=== PATIENT | female | born 1945 | race Two or more races ===

== ENCOUNTER → 2016-09-15 | Day surgery (SDC) | payer OTHER ==
[~2016-09-15] MED LIST: ACETAMINOPHEN 500 MG TAB PO ONE; BACITRACIN 50,000 UNITS/10 ML SYR IRR ONE; BUPIVACAINE 0.25% 30 ML SDV ONE; BUPIVACAINE/EPI 0.25% 30 ML SDV ONE; BUPIVACAINE/EPI 0.5% 30 ML SDV ONE; CALCIUM CHLORIDE 1 GM/10 ML INJ ONE; DEXAMETHASONE 4 MG/ML VIAL ONE; LIDOCAINE 1% 5 ML SDV ONE; LIDOCAINE 2% JELLY 5 ML TUBE ONE; MIDAZOLAM 2 MG/2 ML VIAL ONE; ONDANSETRON 4 MG/2 ML VIAL ONE; POLYMYXIN B SULFATE 500,000 UNIT/10 ML SYR IRR ONE; PROPOFOL/EMULSION 500 MG/50 ML BOTTLE IV ONE; THROMBIN (BOVINE) 5,000 UNIT VIAL TP ONE; ceFAZolin 2 GM/DEXTROSE 100 ML IV ONE; fentaNYL 100 MCG/2 ML INJ ONE
--- NOTE | 2016-09-15 09:44 | GOP ---
[f rep st] OPERATIVE REPORT DATE OF OPERATION: 09/15/2016 SURGEON: Mary Ybarra MD STEM ROLLER: Sheeba Pisano, certified SA whose presence was medically necessary. ANESTHESIA: By LMA plus scalene nerve block per surgeon's request. PREOPERATIVE DIAGNOSIS: Right shoulder impingement syndrome with labral tear. POSTOPERATIVE DIAGNOSIS: Right shoulder impingement syndrome with labral tear, rotator cuff tear. PROCEDURE PERFORMED: Right shoulder arthroscopy with rotator cuff repair x1, subacromial decompress ion, distal clavicle excision, debridement of labrum, rotator cuff, and subacromial bursa. FINDINGS: INDICATIONS: This is a 71-year-old female with a several-month history of right shoulder pain worse curt with use and with time despite conservative measures. MRI exam reveals significant anterior ac romial curve with a labral tear and a very thin supraspinatus. She wishes to have surgery in order to resolve the problem. DESCRIPTION OF PROCEDURE: Patient was brought to the operating room after the right side had been i dentified as the correct side by the patient, nurse, and physician. Once in the operating room, she was given a scalene nerve block on the right side, then placed under anesthesia using an LMA. Once asleep, she was placed in a beach-chair position with the right upper extremity sterilely prepped a nd draped in the usual fashion using GSI solution. Once prepped and draped, incision was made off t he posterolateral corner of the acromion with the camera introduced without difficulty. Inspection of the joint revealed tearing of the anterosuperior portion of the labrum along with an abundant jaguar unt of fraying of the rotator cuff. Therefore, using the in-to-out technique, an anterior portal wa s made superolateral to the coracoid process with a 6 x 75 mm threaded cannula placed through the an terior portal. A 3.5 mm smooth shaver was then used to debride both the tears of the anterior and s uperior portion of the labrum. Attention was then turned to the rotator cuff. Debridement of the m ultiple loose fragments of the rotator cuff revealed a hole that appeared to go into the subacromial space. Once completed, all instruments were removed from the shoulder joint using the same portal sites that were placed in the subacromial space. A third incision was made 3 cm lateral to the acro mial process in line with the posterior cortex of the clavicle. The camera was switched to the late ral portal, and alternating using arthroscopic Bovie tip and shaver were used to remove the abundant amount of bursal tissue within the subacromial space and the soft tissue on the undersurface of the acromion. She was noted to have a very large anterior acromial curve and, therefore, an acromioniz er bur was brought through the posterior portal and used to remove that curve until achieving a flat ceiling. Attention was then turned to the distal clavicle which was noted to have a short sharp sp ur, and it was, therefore, removed using a combination of shaver and bur. Once completed, the camer a was switched back to the posterior portal. She was noted to have a 2 x 1 cm rotator cuff tear at the anterior portion of the greater tuberosity. The bone was eburnated where the rotator cuff had p ulled off the bone. The edges of the rotator cuff were debrided until achieving more solid edges. #2 FiberWire was woven into the anterior and posterior portions of the rotator cuff. The suture was placed onto a [employer] anchor which was driven into the bone, noted to have good fixation. Sutures were cut short. 30 cc of Marcaine was infused into the subacromial space with the 3 portal sites cl osed using 3-0 nylon suture. Plasma gel was placed within the subacromial space. The wounds were t hen dressed with Xeroform, 4 x 4, and Tegaderm. She was completely undraped in the operating room, had an immobilizer placed on the right upper extremity. She was then woken up, extubated, transferr ed onto a stretcher, and sent to recovery room in good condition. /[id number]/MODL
== END | disposition home or self-care (01) ==
LOC: FSGY 05:50
PROVIDERS: ATTEND Orthopaedic Surgery
PROC: 0RBJ4ZZ Excision of Right Shoulder Joint, Percutaneous Endoscopic Approach (ICD-10-PCS; principal; 2016-09-15 07:15)
PROC: 0PB94ZZ Excision of Right Clavicle, Percutaneous Endoscopic Approach (ICD-10-PCS; principal; 2016-09-15 07:15)
PROC: 0RQJ4ZZ Repair Right Shoulder Joint, Percutaneous Endoscopic Approach (ICD-10-PCS; principal; 2016-09-15 07:15)
PROC: 0LQ14ZZ Repair Right Shoulder Tendon, Percutaneous Endoscopic Approach (ICD-10-PCS; principal; 2016-09-15 07:15)
DX: M75.41 Impingement syndrome of right shoulder (principal); M75.101 Unspecified rotator cuff tear or rupture of right shoulder, not specified as traumatic; S43.431A Superior glenoid labrum lesion of right shoulder, initial encounter; E11.9 Type 2 diabetes mellitus without complications; E78.00 Pure hypercholesterolemia, unspecified
CPT/HCPCS: C1713; J0171; J0690; J1100; J2250; J2405; J2704; J3010

== ENCOUNTER 2018-06-14 10:20 | Inpatient (IN) | payer OTHER ==
[2018-06-14] MEDS ORDERED: BUPIVACAINE/EPI 0.5% 30 ML SDV ONE (10:49)
[2018-06-14] MEDS ORDERED: BACITRACIN 50,000 UNITS/10 ML SYR IRR ONE (10:50)
[2018-06-14] MEDS ORDERED: POLYMYXIN B SULFATE 500,000 UNIT/10 ML SYR IRR ONE (10:50)
--- NOTE | 2018-06-14 11:03 | PDANEPAE ---
ANE Past Medical History - Cardiovascular History Hx Hypertension: No Hx Arrhythmias: No Hx Chest Pain: No Hx Coronary Artery / Peripheral Vascular Disease: No Hx CHF / Valvular Disease: No Hx Palpitations: No Cardiovascular History Comment: Intermittent LBBB after 2017 shoulder. - Pulmonary History Hx COPD: No Hx Asthma/Reactive Airway Disease: No Hx Recent Upper Respiratory Infection: No Hx Oxygen in Use at Home: No Hx Sleep Apnea: No Sleep Apnea Screening Result - Last Documented: Negative Pulmonary History Comment: bronchitis - Neurologic History Hx Cerebrovascular Accident: No Hx Seizures: No Hx Dementia: No - Endocrine History Hx Diabetes: Yes Obesity: yes, mild Endocrine History Comment: NON-INSULIN DEPENDENT DIABETES. type 2 - Renal History Hx Renal Disorders: No - Liver History Hx Hepatic Disorders: No - Neurological & Psychiatric Hx Hx Neurological and Psychiatric Disorders: No - Cancer History Hx Cancer: No - Congenital Disorder History Hx Congenital Disorders: No - GI History Hx Gastrointestinal Disorders: Yes Gastrointestinal History Comment: GERD - Other Health History Other Health History: ROTATOR CUFF SYNDROME, DEPUYTREN'S DISEASE OF PALM, OSTEOARTHRITIS, BURSITIS OF HIP - Chronic Pain History Chronic Pain: No - Surgical History Prior Surgeries: PARTIAL HYSTERECTOMY. RIGHT KNEE REPLACEMENT 03/19, COLONOSCOPY 2011. CATARACTS. rotator cuff repair 2015 ANE Review of Systems Review of Systems: - Exercise capacity METS (RN): 4 METS ANE Patient History - Allergies Allergies/Adverse Reactions: amoxicillin [From Augmentin] Allergy (Unknown, Verified 06/13/18 16:15) GI UPSET clavulanic acid [From Augmentin] Allergy (Unknown, Verified 06/13/18 16:15) GI UPSET - Home Medications Home Medications: Aspirin [Aspirin 81mg (*)] 81 mg PO DAILY 06/03/18 [Last Taken Unknown] Atorvastatin Calcium [Lipitor 20 mg (*)] 20 mg PO DAILY 06/03/18 [Last Taken Unknown] Cholecalciferol Vit D3 [Vitamin D3 (*)] 5,000 units PO MWF 06/03/18 [Last Taken Unknown] Metformin HCl [Metformin 1000 mg] 1,000 mg PO BIDPC 06/03/18 [Last Taken Unknown ] Omeprazole 40 mg PO DAILY 06/03/18 [Last Taken Unknown] glipiZIDE [Glipizide] 5 mg PO DAILY 06/03/18 [Last Taken Unknown] - Smoking Hx Smoking Status: Former smoker - Family Anes Hx Family Hx Anesthesia Complications: NONE ANE Labs/Vital Signs - Vital Signs Height: 163.83 cm Weight: 78.018 kg ANE Physical Exam - Airway Neck exam: FROM Mallampati Score: Class 1 - Pulmonary Pulmonary: no respiratory distress - Cardiovascular Cardiovascular: regular rate and rhythym - ASA Status ASA Status: III ANE Anesthesia Plan Anesthesia Plan: spinal Regional Anesthesia: adductor canal FNB
--- NOTE | 2018-06-14 11:09 | GHP ---
CURRENT COMPLAINTS: Left knee pain and weakness. HISTORY OF PRESENT ILLNESS: The patient is a 72-year-old female who fell while walking in [place], fell directly onto her knee. She had immediate pain, could not bear weight. She was seen in the [facility] room, diagnosed with a displaced patellar fracture. She wishes to have surgery in order to re solve the problem. ALLERGIES: She has no known drug allergies. CURRENT MEDICATIONS: Include atorvastatin, clobetasol, Estrace, gabapentin, glipizide, metformin, om eprazole, prednisone, ProAir, and aspirin. PAST MEDICAL HISTORY: Prior medical problems include anemia, diabetes, and high cholesterol. Prior surgeries include a right shoulder scope, right total knee arthroplasty, and cataract surgery. SOCIAL HISTORY: She is a former smoker, social drinker. PHYSICAL EXAMINATION: HEENT: The patient's pupils are equal, round, and reactive to light. CHEST: Clear to auscultation. HEART: Regular rate and rhythm. ABDOMEN: Soft and nontender. EXTREMITIES : Her left knee has a palpable gap at the area of the patella. She is unable to fire her quad and i s unable to keep her leg in an extended position without pain. X-ray exam reveals a displaced patellar fracture. ASSESSMENT AND PLAN: Patient is status post left patella fracture. Plan is to take her to the [facility] room to undergo an open reduction/internal fixation of the left patella. /[id number]/MODL
[2018-06-14] MEDS ORDERED: ROPIVACAINE 0.2% 80 MG, EPINEPHrine 0.2 MG, KETOROLAC TROMETHAMINE 30 MG, morphINE 10 M... IU ONE (11:30)
[2018-06-14] MEDS ORDERED: ceFAZolin 2 GM/DEXTROSE 100 ML IV ONE (11:30)
[2018-06-14] MEDS ORDERED: ACETAMINOPHEN 500 MG TAB PO ONE (11:30)
[2018-06-14] MEDS ORDERED: TRANEXAMIC ACID 3,000 MG in NS (SYRINGE) 50 ML IRR ONE (11:30)
[2018-06-14] MEDS ORDERED: PREGABALIN 150 MG CAP PO ONE (11:30)
[2018-06-14] MEDS ORDERED: LIDOCAINE 1% 2 ML INJ ID PRN (11:31)
[2018-06-14] MEDS ORDERED: LR 1,000 ML IV ONE (11:31)
--- NOTE | 2018-06-14 11:38 | PDHPUP ---
History & Physical Update H&P update statement: This history and physical update is based on an assessment of the patient which was completed after admission or registration (within 24 hours), but prior to the surgery/procedure. H&P update: H&P reviewed & patient examined, no change in patient's condition since H&P completed
[2018-06-14] MEDS ORDERED: MIDAZOLAM 2 MG/2 ML VIAL IVP ONE (12:01)
[2018-06-14] MEDS ORDERED: MIDAZOLAM 2 MG/2 ML VIAL ONE (12:09)
[2018-06-14] MEDS ORDERED: PROPOFOL/EMULSION 500 MG/50 ML BOTTLE IV ONE (12:13)
[2018-06-14] MEDS ORDERED: BUPIVACAINE/DEXTROSE 7.5MG/ML 2 ML SPINAL AMP SP ONE (12:27)
[2018-06-14] MEDS ORDERED: CALCIUM CHLORIDE 1 GM/10 ML INJ ONE (13:02)
[2018-06-14] MEDS ORDERED: THROMBIN (BOVINE) 5,000 UNIT VIAL TP ONE (13:02)
[2018-06-14] MEDS ORDERED: METOCLOPRAMIDE 10 MG/2 ML VIAL ONE (13:02)
--- NOTE | 2018-06-14 13:06 | POSTANESTH ---
Post Anesthetic Evaluation Cardiovascular Status: Normal, Stable Respiratory Status: Normal, Stable Level of Consciousness/Mental Status: Can Participate in Eval Pain Control: Adequate, Prn Tx Ordered Nausea/Vomiting Control: Adequate, Prn Tx Ordered Complications Possibly Related to Anesthesia: None Noted
[2018-06-14] MEDS ORDERED: PHENYLEPHRINE HCL 100 MCG/ML SYR ONE (13:11)
[2018-06-14] MEDS ORDERED: ALBUTEROL 3 ML DEYVIAL IH PRN (13:25)
[2018-06-14] MEDS ORDERED: HYDROmorphONE/DILAUDID 2 MG/ML INJ IVP PRN (13:25)
[2018-06-14] MEDS ORDERED: MEPERIDINE 25 MG/0.5 ML AMP IVP PRN (13:25)
[2018-06-14] MEDS ORDERED: NALOXONE HCL 0.4 MG/ML INJ IVP PRN (13:25)
[2018-06-14] MEDS ORDERED: DEXAMETHASONE 4 MG/ML VIAL IVP PRN (13:25)
[2018-06-14] MEDS ORDERED: fentaNYL 100 MCG/2 ML INJ IVP PRN (13:25)
[2018-06-14] MEDS ORDERED: PROMETHAZINE HCL 25 MG/ML INJ IVP PRN (13:25)
[2018-06-14] MEDS ORDERED: ONDANSETRON 4 MG/2 ML VIAL IVP PRN (13:25)
[2018-06-14] MEDS ORDERED: LR 500 ML IV PRN (13:25)
[2018-06-14] MEDS ORDERED: PHENYLEPHRINE HCL 100 MCG/ML SYR IVP PRN (13:25)
[2018-06-14] MEDS ORDERED: ROPIVACAINE HCL 150 MG/30 ML INJ ONE (13:26)
[2018-06-14] MEDS ORDERED: CYCLOBENZAPRINE 10 MG TAB PO PRN (13:42)
[2018-06-14] MEDS ORDERED: LACTULOSE 20 GM/30 ML UDCUP PO PRN (13:42)
[2018-06-14] MEDS ORDERED: TEMAZEPAM 15 MG CAP PO PRN (13:42)
[2018-06-14] MEDS ORDERED: BISACODYL 10 MG SUPP PR PRN (13:42)
[2018-06-14] MEDS ORDERED: TAPENTADOL HCL 50 MG TAB PO PRN (13:42)
[2018-06-14] MEDS ORDERED: MAGNESIUM HYDROXIDE 30 ML UDCUP PO PRN (13:42)
[2018-06-14] MEDS ORDERED: DIPHENOXYLATE/ATROPINE LOMOTIL 1 TAB PO PRN (13:42)
[2018-06-14] MEDS ORDERED: POLYETHYLENE GLYCOL 3350 17 GM PKT PO PRN (13:42)
[2018-06-14] MEDS ORDERED: PROMETHAZINE HCL 25 MG SUPPR PR PRN (13:42)
[2018-06-14] MEDS ORDERED: oxyCODONE IR 5 MG TAB PO PRN (13:42)
[2018-06-14] MEDS ORDERED: ONDANSETRON DISINTEGRATING 4 MG TAB PO PRN (13:42)
[2018-06-14] MEDS ORDERED: diphenhydrAMINE 25 MG CAP PO PRN (13:42)
[2018-06-14] MEDS ORDERED: METOCLOPRAMIDE 10 MG/2 ML VIAL IVP PRN (13:42)
--- NOTE | 2018-06-14 13:42 | POSTOPPROG ---
Post Op Note Date of Operation: 06/14/18 Surgeon: Mary Ybarra Dairy Technician: coltrain Anesthesia: Epidural, Other (Specify) Pre-op Diagnosis: l patella fx Procedure: orif l patella with fluoro Inf/Abcess present in the surg proc area at time of surgery?: No Depth: Deep Incisional (Fascial) EBL: 50-100
[2018-06-14] MEDS: LR 1,000 ML IV SCH ×2 (16:14→23:56)
--- NOTE | 2018-06-14 16:45 | PDMN ---
Medical Necessity Medical necessity: Pt meets inpt criteria per MD order and Musculoskeletal surgery GRG, A-2 days. 72 y/o w/closed fx of L patella admitted for L patella ORIF. Comorbid conditions include: adv age>65, mild obesity, NIDDM, hx R knee replacement. Anticipate>2Mn for above surg/post-op care/recovery.
[2018-06-14] MEDS: ACETAMINOPHEN 325 MG TAB PO SCH ×2 (17:00→23:56)
[2018-06-14] MEDS: traMADol 50 MG TAB PO SCH ×2 (17:00→23:55)
[2018-06-14] MEDS: metFORMIN HCL 500 MG TAB PO SCH ×2 (18:14→20:41)
[2018-06-14] MEDS: FAMOTIDINE 20 MG TAB PO SCH (20:34)
[2018-06-14] MEDS: SENNOSIDES/DOCUSATE SODIUM TAB PO SCH (20:34)
[2018-06-14] MEDS: ceFAZolin 2 GM/DEXTROSE 100 ML IV SCH (20:34)
[2018-06-14] MEDS: ASPIRIN 325 MG TAB PO SCH (20:42)
--- NOTE | 2018-06-15 01:18 | GOP ---
DATE OF OPERATION: 06/14/2018 SURGEON: Mary Ybarra MD AD CLERK: VANNESSA Velasquez, NIA, whose presence was medically necessary. ANESTHESIA: Spinal with adductor nerve block per surgeon's request. PREOPERATIVE DIAGNOSIS: Left patellar fracture. POSTOPERATIVE DIAGNOSIS: Left patellar fracture. PROCEDURE PERFORMED: Open reduction, internal fixation of left patella with fluoroscopy. FINDINGS: INDICATIONS: This is a 72-year-old female, who fell just before Alvin after tripping on a small ledge at [facility], had pain and inability to ambulate afterward. She was diagnosed with a patella fr acture. She is here for a formal fixation. DESCRIPTION OF PROCEDURE: Patient brought to the operating room after the left side had been identif ied as the correct side by the patient, nurse, physician. Once in the operating room, she was given epidural nerve block and then given an adductor nerve block. She was placed supine on the operating table and a tourniquet placed around the upper portion of the left thigh. The left lower extremity w as then sterilely prepped and draped in the usual fashion using GSI solution. Once prepped and drape d, limb was exsanguinated, tourniquet inflated to 250 mmHg. A linear incision was made on the anteri or portion of the knee extending from the midportion of patellar tendon to approximately 3 cm above t he patella with sharp dissection carried down through the skin and subcutaneous layers and through th e paratenon associated with the patella. She was noted to have a wide displacement of the patella fr acture. A combination of irrigation and rongeur was used to remove the hematoma from around the brok en bone associated with the patella. Once achieving exposed bone, the 2 major fragments were able to be brought together and held in place with a tenaculum. Once in place, 2 K-wires were passed from s uperior to inferior through the both fragments of the patella. A 2.5 mm drill guide was passed over the guidewires. The guidewires were measured and 2, 3.5 mm partially threaded cancellous and cannula chantel screws were placed through the fracture across the fracture site going from inferior to superior, given that the superior portion had the largest amount of bone therefore the most ability to hold th e threads. Once in place, 18-gauge wire was passed through both of the cannulated screws and placed in a [id number] position and tension band wiring was performed. Once the wires were secure, the y were cut short and pushed into the fracture site. Fluoroscopy was then brought in and noted on the AP and lateral projections. Good positioning of the hardware, at which point the wound was again th oroughly irrigated with antibiotic solution. 0 Vicryl suture was used to close the retinaculum on ei ther side of the patella as well as paratenon on the subcutaneous layers, 2-0 Vicryl sutures for subc utaneous layers. Plasma gel placed anterior to the patella below the subcutaneous tissue as well as irrigated with tranexamic acid. The tourniquet was released at 43 minutes and a 3-0 V-Loc suture in a running subcuticular stitch was used to close the skin. 30 mL of Marcaine was infused around the i ncision. The incision was then dressed with Steri-Strips, Xeroform, 4 x 4, wrapped in Kerlix. The l eg was completely undraped in the operating room, tourniquet removed from the thigh and an Evin wrap p laced around the knee. The patient was allowed to be woken up and transferred onto a stretcher, and sent to recovery room in good condition. TOURNIQUET TIME: 43 minutes. /[id number]/MODL
[2018-06-15] MEDS: ceFAZolin 2 GM/DEXTROSE 100 ML IV SCH (04:18)
[2018-06-15] MEDS: ACETAMINOPHEN 325 MG TAB PO SCH ×2 (06:08→11:47)
[2018-06-15] MEDS: traMADol 50 MG TAB PO SCH ×2 (06:08→11:46)
[2018-06-15] MEDS: ASPIRIN 325 MG TAB PO SCH (08:45)
[2018-06-15] MEDS: FAMOTIDINE 20 MG TAB PO SCH (08:45)
[2018-06-15] MEDS: SENNOSIDES/DOCUSATE SODIUM TAB PO SCH (08:45)
[2018-06-15] MEDS ORDERED: glipiZIDE 5 MG TAB PO SCH (09:00)
[2018-06-15] MEDS ORDERED: PANTOPRAZOLE SODIUM 40 MG TAB PO SCH (09:00)
[2018-06-15] MEDS ORDERED: ATORVASTATIN CALCIUM 20 MG TAB PO SCH (09:00)
[2018-06-15] MEDS ORDERED: ASPIRIN 81 MG CHEWABLE TAB PO SCH (09:00)
[2018-06-15] MEDS: metFORMIN HCL 500 MG TAB PO SCH (10:32)
[2018-06-15 10:47] LABS: PLATELET COUNT 189 10^3/uL (150-400)
[2018-06-15] MEDS: LR 1,000 ML IV SCH (10:57)
[2018-06-15 11:56] VITALS: BP 141/64
--- NOTE | 2018-06-15 14:04 | PDIAF ---
- Diagnosis Diagnosis: left knee patella fracture Code Status: Full Code - Medication Management Discharge Medications: electronically signed and located in the Home Medication List. - Orders Diet Recommendation: no restrictions on diet Diet Texture: Regular Texture Diet Additional Instructions: WBAT LLE in the T-scope brace locked in extension. T-scope brace locked in extension at all times. Prescription for pain medication in chart. Aspirin 325 x 10 days post op. Follow up in 10-14 days for repeat evaluation. - Follow Up Care Current Providers and Referrals: MONIQUE GARCIA [Primary Care Provider] - Mary Ybarra MD [Medical Doctor] -
--- NOTE | 2018-06-15 14:04 | SOAPPROG ---
SOAP Progress Note Assessment/Plan: Assessment: POD#1 s/p ORIF left patella fracture. She was having difficulty urinating until earlier this afternoon. Hospitalist was consulted and labs came back normal and she began urinating earlier this afternoon. PE: T-scope brace in place. Dressing with small amount of sanguinous drainage. DF/PF of foot intact. Calf soft to compression without pain. NV intact LLE Plan: Plan to discharge home today with home PT. She will follow up in office in 10-14 days. 06/15/18 13:58 Objective: Vital Signs Temp Pulse Resp BP Pulse Ox 36.4 C 70 16 141/64 H 94 06/15/18 11:55 06/15/18 11:55 06/15/18 11:55 06/15/18 11:55 06/15/18 11:55 Laboratory Results 06/15/18 10:34 06/15/18 10:34 06/14/18 06/15/18 06/16/18 05:59 05:59 05:59 Intake Total 1581 1703 Output Total 5 750 Balance 1576 953 ICD10 Worksheet Patient Problems: Problems Problem Status Onset Arthritis of knee Acute knee arthritis Acute
--- NOTE | 2018-06-15 16:01 | ASMTLACE ---
LACE Length of stay for Answers: 2 days current admission Acuity / Level of Answers: Yes Care: Did the patient have an inpatient admission? Comorbidities - select Answers: Diabetes (uncontrolled or all that apply controlled) Other Notes: GERD # of Emergency department Answers: 0 visits in the last 6 months Score: 7 Date Signed: 06/15/2018 04:00 PM Electronically Signed By:GURVINDER Ya
--- NOTE | 2018-06-15 16:02 | ASMTCMCOM ---
CM Note CM Note Notes: Pt medically stable for d/c with [facility] PT. Orders to be obtained via [employer]. Date Signed: 06/15/2018 04:01 PM Electronically Signed By:GURVINDER Ya
--- NOTE | 2018-06-16 09:46 | ASDISCHSUM ---
Discharge Information Plan Status:Home with Home Health Medically Cleared to Leave: Discharge Date:06/15/2018 04:34 PM CM D/C Disposition: ADT D/C Disposition:[id number] Projected Discharge Date:06/15/2018 11:00 AM Transportation at D/C: Discharge Delay Reason: Follow-Up Date:06/15/2018 11:00 AM Discharge Slot: Final Diagnosis: Placement Information Referral Type:*Home Health Care Services Referral ID:[id number] Provider Name:[facility] Address 1[address] [facility] [address] Address 2: City:[place] Selection Factors: State:[place] Patient Contact Information Contact Name:KIERA Relationship: Address:[address] [place] [address] City:[place] Alternate Phone: State/Zip Code:[place] [address] Email: Financial Information Financial Class:Medicare Advantage Plans Primary Plan Desc:[facility] Flattr Primary Plan Number:[id number] Secondary Plan Desc: Secondary Plan Number: Assessment Information LACE LACE Length of stay for Answers: 2 days current admission Acuity / Level of Answers: Yes Care: Did the patient have an inpatient admission? Comorbidities - select Answers: Diabetes (uncontrolled or all that apply controlled) Other Notes: GERD # of Emergency department Answers: 0 visits in the last 6 months Score: 7 Date Signed: 06/15/2018 04:00 PM Electronically Signed By:GURVINDER Ya BC CM Progress Note CM Note CM Note Notes: Pt medically stable for d/c with [facility] PT. Orders to be obtained via [employer]. Date Signed: 06/15/2018 04:01 PM Electronically Signed By:GURVINDER Ya Intervention Information Intervention Type:*Incorrect Registration Date of Service:06/14/2018 04:33 PM Patient Type:Observation Staff Member:AMELIA Lawrence, Rohini Hours: Discipline: Severity: Comment:
--- NOTE | 2018-06-21 09:29 | GDS ---
CURRENT COMPLAINT: Left knee pain. HISTORY OF PRESENT ILLNESS: This is a 72-year-old female who fell just before Alvin after trippi ng on a small ledge at [employer]. She had pain and inability to ambulate afterward. She was diagnose d with a displaced patella fracture. She wishes to have surgery in order to resolve the problem. HOSPITAL COURSE: The patient was brought to the operating room on the day of admission where she und erwent open reduction, internal fixation of her left patella with fluoroscopy. She was placed in a l eleanor-leg immobilizer so she was able to bear weight without having to use her quadriceps in order to a mbulate. Postoperatively, her pain was able to be kept under control and once she passed her physical therapy milestones while wearing her brace, she was able to be discharged home the following day with instruc tions to continue to be weightbearing as tolerated but wear the brace time broker and follow up in the office in 7 to 10 days to check her wound. She was given a discharge diagnosis of a left patella fra cture. /[id number]/MODL
== END 2018-06-15 16:34 | disposition home health service (06) | DRG 517 ==
LOC: F3N 10:20 → OBSVTOIN 13:46 → F3N 15:37
PROVIDERS: ADMIT Orthopaedic Surgery; ATTEND Orthopaedic Surgery
PROC: 0QSF04Z Reposition Left Patella with Internal Fixation Device, Open Approach (ICD-10-PCS; principal; 2018-06-14 12:00)
DX: S82.002A Unspecified fracture of left patella, initial encounter for closed fracture (principal); D64.9 Anemia, unspecified; E11.9 Type 2 diabetes mellitus without complications; E78.00 Pure hypercholesterolemia, unspecified; K21.9 Gastro-esophageal reflux disease without esophagitis; Z96.651 Presence of right artificial knee joint
CPT/HCPCS: 97161-GP; 97166-GO; 97535-GO; C1713; J0171; J0690; J1885; J2250; J2270; J2370; J2704; J2765; J2795

== ENCOUNTER 2018-06-29 11:20 | Observation (INO) | payer OTHER ==
--- NOTE | 2018-06-29 09:50 | PDGENHP ---
History & Physical Chief Complaint: left knee patella fracture History of Present Illness: Prema is a pleasant 72 year old female with a left patella fracture. She had prior ORIF of patella on 06/14/18 and was found to have recurrent displacement at her first post operative appointment. She would like to proceed with ORIF left patella vs partial patellectomy Pertinent Past, Social, Family History: PMH: anemia, diabetes, hyperlipidemia. Social history: noncontributory. FH: non-contributory Relevant Physical Exam: Well approximated anterior incision without erythema, warmth, or drainage. Palpable deformity of the patella. ROM not tested. NV intact LLE Cardiorespiratory Assessment: RRR, CTAB
--- NOTE | 2018-06-29 10:30 | GHP ---
ALLERGIES: She lists no drug allergies. CURRENT MEDICATIONS: Include atorvastatin, clobetasol, Estrace, gabapentin, glipizide, metformin, om eprazole, ProAir. PRIOR MEDICAL PROBLEMS: Include anemia, diabetes and high cholesterol. PRIOR SURGERIES: Include ORIF of the patella, right shoulder scope, right total knee arthroplasty an d cataracts. SOCIAL HISTORY: She is a former smoker. She is a social drinker. PHYSICAL EXAMINATION: HEENT: The patient's pupils are equal, round and reactive to light. CHEST: Clear to auscultation. HEART: Regular rate and rhythm. ABDOMEN: Soft and nontender. EXTREMITIES: The left lower extremity has a well-healing incision; however, she is unable to actively extend her leg. X-ray exam reveals separation of her prior ORIF. ASSESSMENT AND PLAN: Patient is status post failed left patellar open reduction and internal fixatio n. PLAN: Take her to the operating room to undergo a revision ORIF versus patellar tendon repair onto t he remainder of the patella. /[id number]/MODL
[2018-06-29] MEDS ORDERED: TRANEXAMIC ACID 3,000 MG in NS (SYRINGE) 50 ML IRR ONE (11:29)
[2018-06-29] MEDS ORDERED: ROPIVACAINE 0.2% 80 MG, EPINEPHrine 0.2 MG, KETOROLAC TROMETHAMINE 30 MG in SYRINGE 0 ML IU ONE (11:29)
[2018-06-29] MEDS ORDERED: ceFAZolin 2 GM/DEXTROSE 100 ML IV ONE (11:29)
[2018-06-29] MEDS ORDERED: LIDOCAINE 1% 2 ML INJ ID PRN (11:30)
[2018-06-29] MEDS ORDERED: LR 1,000 ML IV ONE (11:30)
[2018-06-29] MEDS ORDERED: POLYMYXIN B SULFATE 500,000 UNIT/10 ML SYR IRR ONE (11:49)
[2018-06-29] MEDS ORDERED: BUPIVACAINE/EPI 0.5% 30 ML SDV ONE (11:49)
[2018-06-29] MEDS ORDERED: BACITRACIN 50,000 UNITS/10 ML SYR IRR ONE (11:50)
--- NOTE | 2018-06-29 12:52 | PDANEPAE ---
ANE Past Medical History - Cardiovascular History Hx Hypertension: No Hx Arrhythmias: No Hx Chest Pain: No Hx Coronary Artery / Peripheral Vascular Disease: No Hx CHF / Valvular Disease: No Hx Palpitations: No Cardiovascular History Comment: Intermittent LBBB after 2017 shoulder. - Pulmonary History Hx COPD: No Hx Asthma/Reactive Airway Disease: No Hx Recent Upper Respiratory Infection: No Hx Oxygen in Use at Home: No Hx Sleep Apnea: No Sleep Apnea Screening Result - Last Documented: Negative Pulmonary History Comment: bronchitis - Neurologic History Hx Cerebrovascular Accident: No Hx Seizures: No Hx Dementia: No - Endocrine History Hx Diabetes: Yes Hypothyroid: No Hyperthyroid: No Obesity: moderate Endocrine History Comment: type 2 - Renal History Hx Renal Disorders: No - Liver History Hx Hepatic Disorders: No - Neurological & Psychiatric Hx Hx Neurological and Psychiatric Disorders: No - Cancer History Hx Cancer: No - Congenital Disorder History Hx Congenital Disorders: No - GI History Hx Gastrointestinal Disorders: Yes Gastrointestinal History Comment: gerd - Other Health History Other Health History: DEPUYTREN'S DISEASE OF PALM. OA. wears glasses - Chronic Pain History Chronic Pain: Yes (left knee) - Surgical History Prior Surgeries: 06/14/18 left knee patella ORIF with Amada. 09/15/16 right shoulder scope with Amada. 03/21/13 right TKA with Amada. PARTIAL HYSTERECTOMY. COLONOSCOPY 2012. CATARACTS ANE Review of Systems Review of Systems: - Exercise capacity METS (RN): 4 METS ANE Patient History - Allergies Allergies/Adverse Reactions: amoxicillin [From Augmentin] Allergy (Verified 06/28/18 17:20) GI UPSET clavulanic acid [From Augmentin] Allergy (Verified 06/28/18 17:20) GI UPSET - Home Medications Home Medications: Atorvastatin Calcium [Lipitor 20 mg (*)] 20 mg PO HS 06/03/18 [Last Taken 2 Days Ago ~06/27/18] Metformin HCl [Metformin 1000 mg] 1,000 mg PO HS 06/03/18 [Last Taken 06/27/18] Omeprazole 40 mg PO DAILY 06/03/18 [Last Taken 06/29/18 07:30] glipiZIDE [Glipizide] 5 mg PO DAILY 06/03/18 [Last Taken 06/14/18] Hydrocodone/Acetaminophen [Pearl 5-325 Tablet] 1 each PO Q6HRS PRN 06/27/18 [ Last Taken 2 Days Ago ~06/27/18] - NPO status NPO Since - Liquids (Date): 06/29/18 NPO Since - Liquids (Time): 08:30 NPO Since - Solids (Date): 06/28/18 NPO Since - Solids (Time): 21:30 - Smoking Hx Smoking Status: Former smoker - Family Anes Hx Family Hx Anesthesia Complications: none ANE Labs/Vital Signs - Vital Signs Blood Pressure: 124/70 Heart Rate: 94 Respiratory Rate: 18 O2 Sat (%): 93 Height: 163.83 cm Weight: 78.018 kg ANE Physical Exam - Airway Neck exam: FROM Mallampati Score: Class 1 Mouth exam: normal dental/mouth exam - Pulmonary Pulmonary: no respiratory distress - Cardiovascular Cardiovascular: regular rate and rhythym ANE Anesthesia Plan Anesthesia Plan: GA w LMA
[2018-06-29] MEDS ORDERED: ROPIVACAINE HCL 150 MG/30 ML INJ ONE (13:04)
[2018-06-29] MEDS ORDERED: LIDOCAINE 2% 5 ML SDV ONE (13:04)
[2018-06-29] MEDS ORDERED: PROPOFOL 200 MG/20 ML VIAL ONE ×2 (13:04→13:35)
[2018-06-29] MEDS ORDERED: fentaNYL 250 MCG/5 ML INJ ONE (13:04)
[2018-06-29] MEDS ORDERED: fentaNYL 100 MCG/2 ML INJ IVP PRN (15:01)
[2018-06-29] MEDS ORDERED: PROMETHAZINE HCL 25 MG/ML INJ IVP PRN (15:01)
[2018-06-29] MEDS ORDERED: LABETALOL HCL 5 MG/ML 20 ML MDV IVP PRN (15:01)
[2018-06-29] MEDS ORDERED: NALOXONE HCL 0.4 MG/ML INJ IVP PRN (15:01)
[2018-06-29] MEDS ORDERED: oxyCODONE IR 5 MG TAB PO PRN (15:01)
[2018-06-29] MEDS ORDERED: DEXAMETHASONE 4 MG/ML VIAL ONE (15:06)
[2018-06-29] MEDS ORDERED: ONDANSETRON 4 MG/2 ML VIAL ONE (15:06)
[2018-06-29] MEDS ORDERED: CYCLOBENZAPRINE 10 MG TAB PO PRN (15:09)
[2018-06-29] MEDS ORDERED: PROMETHAZINE HCL 25 MG SUPPR PR PRN (15:09)
[2018-06-29] MEDS ORDERED: ONDANSETRON DISINTEGRATING 4 MG TAB PO PRN (15:09)
[2018-06-29] MEDS ORDERED: ONDANSETRON 4 MG/2 ML VIAL IVP PRN (15:09)
[2018-06-29] MEDS ORDERED: diphenhydrAMINE 25 MG CAP PO PRN (15:09)
[2018-06-29] MEDS ORDERED: BISACODYL 10 MG SUPP PR PRN (15:09)
[2018-06-29] MEDS ORDERED: LACTULOSE 20 GM/30 ML UDCUP PO PRN (15:09)
[2018-06-29] MEDS ORDERED: TEMAZEPAM 15 MG CAP PO PRN (15:09)
[2018-06-29] MEDS ORDERED: DIPHENOXYLATE/ATROPINE LOMOTIL 1 TAB PO PRN (15:09)
[2018-06-29] MEDS ORDERED: POLYETHYLENE GLYCOL 3350 17 GM PKT PO PRN (15:09)
[2018-06-29] MEDS ORDERED: TAPENTADOL HCL 50 MG TAB PO PRN (15:09)
[2018-06-29] MEDS ORDERED: METOCLOPRAMIDE 10 MG/2 ML VIAL IVP PRN (15:09)
[2018-06-29] MEDS ORDERED: MAGNESIUM HYDROXIDE 30 ML UDCUP PO PRN (15:09)
--- NOTE | 2018-06-29 15:09 | POSTOPPROG ---
Post Op Note Date of Operation: 06/29/18 Surgeon: Mary Ybarra Anesthesia: LMA, Other (Specify) Pre-op Diagnosis: l patellar orif failure Procedure: l partial patellectomy with patellar repair onto bone Inf/Abcess present in the surg proc area at time of surgery?: No Depth: Deep Incisional (Fascial) EBL: 100-500
[2018-06-29] MEDS ORDERED: LABETALOL HCL 5 MG/ML 20 ML MDV ONE (15:14)
[2018-06-29] MEDS ORDERED: LIDO/EPI 2%** Not for Epidural 20 ML MDV ONE (15:21)
[2018-06-29] MEDS ORDERED: LR 1,000 ML IV SCH (15:30)
[2018-06-29] MEDS ORDERED: HYDROmorphONE/DILAUDID 1 MG/ML INJ IVP PRN (15:46)
--- NOTE | 2018-06-29 16:12 | GOP ---
DATE OF OPERATION: 06/29/2018 SURGEON: Mary Ybarra MD ANESTHESIA: LMA plus femoral nerve block per surgeon's request. PREOPERATIVE DIAGNOSIS: Left patellar open reduction/internal fixation failure. POSTOPERATIVE DIAGNOSIS: Left patellar open reduction/internal fixation failure. PROCEDURE PERFORMED: Left partial patellectomy with patellar tendon repair onto bone. FINDINGS: INDICATIONS: This is a 72-year-old female who had previously undergone a left patellar ORIF. She st ates that she did not bend her knee at all and has not been having any pain. However, postop follow up x-ray revealed that the inferior pole of the patella had pulled out of the fixation. It was there fore decided to do a revision. DESCRIPTION OF PROCEDURE: The patient was brought to the operating room after the left side had been identified as the correct side by the patient, nurse, and the physician. Once in the operating room , she was given a femoral nerve block and then placed under general anesthesia using LMA. Once aslee p, a tourniquet was placed around the upper portion of the left thigh with the left lower extremity t hen sterilely prepped and draped in the usual fashion using NISREEN/solution. Once prepped and draped, t he limb was exsanguinated, and tourniquet inflated to 250 mmHg. Opening the prior incision sharply, bleeding was controlled using electrocautery. Sharp and blunt dissection were carried down on the ex tensor mechanism. The bone of the inferior portion of the patella was noted to have been cut through with the wires cutting through the bone very similar to a billet cutter, meaning there were multiple pieces associated with the inferior portion of the patella. It was decided that these portions shou ld be taken out and removed. These were taken out in whole. The hardware that had been previously p laced was taken out. Two sets of #2 FiberWire were woven into the medial and lateral portions of the patellar tendon in a locking whipstitch. The prior holes that had been made for the cannulated scre ws had the sutures passed through them using a suture passer, with the sutures crossed and then broug ht back together, such that the sutures were being tied onto themselves. The patella was retracted d istally in order to get it to dock into the end of the patellar tendon. The #2 FiberWire was sewn in to place. 0 Vicryl suture was then used to oversew around the retinaculum, as well as the anterior p ortion of the patellar tendon to pull that onto the patella. The suture was able to be passed throug h the bone of the patella using just the suture needle, suggesting very poor quality bone. The joint cocktail was injected around the extensor mechanism and around the retinacular repair. 0 Vicryl and 2-0 Vicryl sutures were then used to close the subcutaneous layers. Bleeding was again controlled w ith electrocautery after the tourniquet had been deflated at 60 minutes, and then a 4-0 V-Loc suture in a running subcuticular stitch was used to close the skin. The wound was then dressed with Steri-S trips, Xeroform, 4 x 4's, and wrapped in Kerlix. Leg was completely undraped in the operating room, tourniquet removed from the thigh, and an Evin wrap placed around the knee. The patient then had JOE hose placed on the left lower extremity and she was placed in a hinged brace locked at 0 degrees hold ing the knee in extended position. She was then woken up, extubated, transferred onto a stretcher, a nd sent to recovery room in good condition. TOURNIQUET TIME: 60 minutes. /[id number]/MODL
[2018-06-29] MEDS: ceFAZolin 2 GM/DEXTROSE 100 ML IV SCH (18:28)
[2018-06-29] MEDS: ACETAMINOPHEN 325 MG TAB PO SCH ×2 (18:33→23:58)
[2018-06-29] MEDS: traMADol 50 MG TAB PO SCH ×2 (18:33→23:59)
[2018-06-29] MEDS: SENNOSIDES/DOCUSATE SODIUM TAB PO SCH (21:16)
[2018-06-29] MEDS: ASPIRIN 81 MG CHEWABLE TAB PO SCH (21:16)
[2018-06-29] MEDS: FAMOTIDINE 20 MG TAB PO SCH (21:16)
[2018-06-30] MEDS: ceFAZolin 2 GM/DEXTROSE 100 ML IV SCH (03:07)
[2018-06-30] MEDS: ACETAMINOPHEN 325 MG TAB PO SCH ×2 (05:35→13:20)
[2018-06-30] MEDS: traMADol 50 MG TAB PO SCH ×2 (05:36→13:20)
[2018-06-30] MEDS ORDERED: metFORMIN HCL 500 MG TAB PO SCH (08:30)
[2018-06-30] MEDS ORDERED: PANTOPRAZOLE SODIUM 40 MG TAB PO SCH (09:00)
[2018-06-30] MEDS ORDERED: glipiZIDE XL 5 MG TAB PO SCH (09:00)
[2018-06-30] MEDS ORDERED: CHOLECALCIFEROL VIT D3 1,000 UNITS TAB PO SCH (09:00)
[2018-06-30] MEDS: FAMOTIDINE 20 MG TAB PO SCH (09:31)
[2018-06-30] MEDS: ASPIRIN 81 MG CHEWABLE TAB PO SCH (09:31)
[2018-06-30] MEDS: SENNOSIDES/DOCUSATE SODIUM TAB PO SCH (09:33)
[2018-06-30 11:26] VITALS: BP 125/63
--- NOTE | 2018-06-30 12:25 | ASMTCMCOM ---
CM Note CM Note Notes: Pt had L patella ORIF revision. Pt open currently with [facility] PT. OT/PT evals pending. Pt likely able to d/c with resumption of care orders for [facility] PT and CM to follow what therapy evals rec. Date Signed: 06/30/2018 12:25 PM Electronically Signed By:GURVINDER Ya
--- NOTE | 2018-06-30 13:33 | PDIAF ---
- Diagnosis Diagnosis: Left patella ORIF Code Status: Full Code - Medication Management Discharge Medications: electronically signed and located in the Home Medication List. - Orders Services needed: Physical Therapy, Occupational Therapy Diet Recommendation: no restrictions on diet Diet Texture: Regular Texture Diet Additional Instructions: Prema may WBAT with the brace locked in extension. Please change to a water proof Mepilex dressing prior to discharge. Keep wound clean an dry.Keep T-Scope brace locked in extension at all times. Aspirin 325mg x 10 days post op. Follow up in 14 days for repeat evaluation and wound check - Follow Up Care Current Providers and Referrals: MONIQUE GARCIA [Primary Care Provider] -
--- NOTE | 2018-06-30 15:30 | ASMTLACE ---
LACE Length of stay for Answers: 2 days current admission Acuity / Level of Answers: No Care: Did the patient have an inpatient admission? Comorbidities - select Answers: Diabetes (uncontrolled or all that apply controlled) Opioid dependence / Chronic pain # of Emergency department Answers: 1-2 visits in the last 6 months Score: 8 Date Signed: 06/30/2018 03:29 PM Electronically Signed By:GURVINDER Ya
--- NOTE | 2018-06-30 15:32 | ASMTCMCOM ---
CM Note CM Note Notes: Pt medically stable for d/c with [facility], orders to be obtained via [employer]. Date Signed: 06/30/2018 03:32 PM Electronically Signed By:GURVINDER Ya
--- NOTE | 2018-06-30 15:51 | ASDISCHSUM ---
Discharge Information Plan Status:Home with Home Health Medically Cleared to Leave: Discharge Date:06/30/2018 02:11 PM CM D/C Disposition: ADT D/C Disposition:Home, Routine, Self-Care Projected Discharge Date:06/30/2018 11:00 AM Transportation at D/C: Discharge Delay Reason: Follow-Up Date:06/30/2018 11:00 AM Discharge Slot: Final Diagnosis: Placement Information Referral Type:*Home Health Care Services Referral ID:[id number] Provider Name:[facility] Address 1:[address] [place] [address] Address 2: City:[place] Selection Factors: State:[place] Patient Contact Information Contact Name:ROSALINESANDY Relationship: Address:[address] [place] [address] City:[place] Alternate Phone: State/Zip Code:[place] [address] Email: Financial Information Financial Class:Medicare Advantage Plans Primary Plan Desc:[employer] [facility] [employer] Primary Plan Number:[id number] Secondary Plan Desc: Secondary Plan Number: Assessment Information LACE LACE Length of stay for Answers: 2 days current admission Acuity / Level of Answers: No Care: Did the patient have an inpatient admission? Comorbidities - select Answers: Diabetes (uncontrolled or all that apply controlled) Opioid dependence / Chronic pain # of Emergency department Answers: 1-2 visits in the last 6 months Score: 8 Date Signed: 06/30/2018 03:29 PM Electronically Signed By:GURVINDER Ya [facility] CM Progress Note CM Note CM Note Notes: Pt had L patella ORIF revision. Pt open currently with [facility] PT. OT/PT evals pending. Pt likely able to d/c with resumption of care orders for [facility] PT and CM to follow what therapy evals rec. Date Signed: 06/30/2018 12:25 PM Electronically Signed By:GURVINDER Ya [facility] CM Progress Note CM Note CM Note Notes: Pt medically stable for d/c with [facility], orders to be obtained via [employer]. Date Signed: 06/30/2018 03:32 PM Electronically Signed By:GURVINDER Ya Intervention Information
[2018-06-30] MEDS ORDERED: ATORVASTATIN CALCIUM 20 MG TAB PO SCH (21:00)
--- NOTE | 2018-07-05 11:39 | GDS ---
[f rep st] DISCHARGE SUMMARY CURRENT COMPLAINT: Left leg weakness. HISTORY OF PRESENT ILLNESS: The patient is a 72-year-old female, who had previously undergone a left patellar ORIF. She does not note any bending of her knee during her followup. However, postop x-ra y reveals the inferior pole of the patella had pulled through the fixation. She wished to have surge ry in order to resolve the problem. HOSPITAL COURSE: Patient brought to the operating room on the day of admission, where she underwent a left partial patellectomy with patellar tendon repair onto bone. Postoperatively, her pain was able to be kept under control. Once she was able to be cleared by physical therapy to be safe at home, s he was discharged to home, 07/01/2018, with instructions to continue with her physical therapy exerci ses and follow up in the office for further evaluation. DISCHARGE DIAGNOSIS: Left patellar open reduction and internal fixation failure. /[id number]/MODL
== END 2018-06-30 14:11 | disposition home or self-care (01) ==
LOC: F3N 11:20
PROVIDERS: ADMIT Orthopaedic Surgery; ATTEND Orthopaedic Surgery
PROC: 0QBF0ZZ Excision of Left Patella, Open Approach (ICD-10-PCS; principal; 2018-06-29 13:00)
PROC: 0LQR0ZZ Repair Left Knee Tendon, Open Approach (ICD-10-PCS; principal; 2018-06-29 13:00)
PROC: 0QPF04Z Removal of Internal Fixation Device from Left Patella, Open Approach (ICD-10-PCS; principal; 2018-06-29 13:00)
DX: T84.127A Displacement of internal fixation device of bone of left lower leg, initial encounter (principal); E11.9 Type 2 diabetes mellitus without complications; E78.5 Hyperlipidemia, unspecified; Z96.651 Presence of right artificial knee joint; Z87.891 Personal history of nicotine dependence
CPT/HCPCS: 27350; 27381; 97116; 97161; 97165; G0378; J0171; J0690; J1100; J1885; J2270; J2405; J2704; J2795; J3010; L1832